=== PATIENT | male | born 1955 | race Hispanic/Latino ===

== ENCOUNTER 2020-01-11 14:53 | Inpatient (IN) | payer SELFPAY ==
[~2020-01-11] VITALS: Ht 167.6 cm; Wt 106.0 kg
[2020-01-11 15:01] LABS: BASOPHILS % (AUTO) 0.2 % (0.0-5.0); EOSINOPHILS % (AUTO) 1.5 % (0.0-8.0); HEMATOCRIT 49.6 % (42-54); LYMPHOCYTES % (AUTO) 48.9 % (21.0-51.0); MEAN CORPUSCULAR HEMOGLOBIN 32.8 pg (27.0-33.0); MEAN CORPUSCULAR HGB CONC 34.1 g/dL (32.0-36.0); MEAN CORPUSCULAR VOLUME 96.3 fL (79-99); MONOCYTES % (AUTO) 8.1 % (3.0-13.0); NEUTROPHILS % (AUTO) 41.1 % (40.0-77.0); PLATELET COUNT (AUTO) 179 K/uL (130-400); RED BLOOD CELL COUNT(AUTO) 5.15 MIL/uL (4.50-6.20); RED CELL DISTRIBUTION WIDTH 12.8 % (11.0-15.5); WHITE BLOOD COUNT (AUTO) 8.5 K/uL (4.8-10.8)
[2020-01-11 15:10] LABS: CREATININE 1.4 mg/dL (0.5-1.5)
[2020-01-11 15:12] LABS: INR 0.93 (0.85-1.15); PARTIAL THROMBOPLASTIN TIME 27.3 SEC (26.3-35.5); PROTHROMBIN TIME 10.1 SEC (9.6-11.6)
[2020-01-11 15:14] LABS: ALBUMIN 4.2 g/dL (3.5-5.0); BILIRUBIN,TOTAL 0.4 mg/dL (0.2-1.0)
[2020-01-11] MEDS ORDERED: ASPIRIN 325 MG TABLET ONE (15:14)
[2020-01-11] MEDS ORDERED: NITROGLYCERIN 0.4 MG SL TAB SL ONE (15:27)
[2020-01-11] MEDS ORDERED: ACETAMINOPHEN 325 MG TAB PO PRN (17:15)
[2020-01-11] MEDS ORDERED: ACETAMINOPHEN-CODEINE 300/30MG TAB PO PRN (17:15)
[2020-01-11] MEDS ORDERED: ENOXAPARIN SODIUM 30 MG/0.3 ML SQ ONE (17:47)
[2020-01-11] MEDS: FAMOTIDINE 20MG TAB 20 MG TAB PO SCH (21:00)
[2020-01-11] MEDS: METOPROLOL TARTRATE 25 MG TAB PO SCH (21:00)
[2020-01-11] MEDS: ATORVASTATIN CALCIUM 20 MG TABLET PO SCH (21:00)
[2020-01-11] MEDS ORDERED: ATORVASTATIN CALCIUM 20 MG TABLET ONE (21:06)
[2020-01-11] MEDS ORDERED: FAMOTIDINE 20MG TAB 20 MG TAB ONE (21:06)
[2020-01-11] MEDS ORDERED: METOPROLOL TARTRATE 25 MG TAB ONE (21:06)
[2020-01-11 23:23] VITALS: BP 144/83
--- NOTE | 2020-01-11 23:30 | NUR ---
ADMISSION NOTE ADMIT TO ROOM 316 VIA STRETCHER FROM ER. PATIENT AWAKE ALERT OX3, NO SOB, NO C/O PAIN, TEACH PATIENT PLAN OF CARE AND EXPECTED OUTCOME, PATIENT VERBALIZES UNDERSTANDING VIA TEACH BACK
[2020-01-11] MEDS ORDERED: LISI10TA7 PO (23:39)
[2020-01-12] VITALS (8 sets, daily range): BP systolic 123–156; BP diastolic 61–92
[2020-01-12 05:41] LABS: BASOPHILS % (AUTO) 0.2 % (0.0-5.0); EOSINOPHILS % (AUTO) 2.1 % (0.0-8.0); HEMATOCRIT 43.6 % (42-54); LYMPHOCYTES % (AUTO) 44.3 % (21.0-51.0); MEAN CORPUSCULAR HEMOGLOBIN 33.4 pg (27.0-33.0); MEAN CORPUSCULAR HGB CONC 34.2 g/dL (32.0-36.0); MEAN CORPUSCULAR VOLUME 97.8 fL (79-99); NEUTROPHILS % (AUTO) 41.9 % (40.0-77.0); PLATELET COUNT (AUTO) 164 K/uL (130-400); RED BLOOD CELL COUNT(AUTO) 4.46 MIL/uL (4.50-6.20); RED CELL DISTRIBUTION WIDTH 12.7 % (11.0-15.5); WHITE BLOOD COUNT (AUTO) 5.7 K/uL (4.8-10.8)
[2020-01-12 06:05] LABS: HEMOGLOBIN A1C 6.3 % (4.0-6.0)
[2020-01-12 06:21] LABS: ALBUMIN 3.3 g/dL (3.5-5.0); BILIRUBIN,TOTAL 0.4 mg/dL (0.2-1.0); CREATININE 1.2 mg/dL (0.5-1.5); POTASSIUM 4.5 mmol/L (3.5-5.1); TOTAL PROTEIN, SERUM 6.4 g/dL (6.0-8.3); TROPONIN I 0.27 ng/mL (0.00-0.06)
[2020-01-12] MEDS ORDERED: PHARMACY COMMUNICATION MISC SCH (08:15)
[2020-01-12] MEDS: ASPIRIN 81MG TAB.CHEW PO SCH (08:28)
[2020-01-12] MEDS: FAMOTIDINE 20MG TAB 20 MG TAB PO SCH ×2 (08:29→21:18)
[2020-01-12] MEDS: METOPROLOL TARTRATE 25 MG TAB PO SCH (08:31)
[2020-01-12] MEDS ORDERED: ENOXAPARIN SODIUM 30 MG/0.3 ML SQ SCH (09:00)
--- NOTE | 2020-01-12 10:19 | NUR ---
spoke with dayday from [facility] on consult . patient is calm denies any chest pain or discomfort . will cont to monitor
--- NOTE | 2020-01-12 10:56 | NUR ---
RD NOTE Pt admitted due to chest pain R/O ACS. Pt is currently NPO. Pt has a hx of HTN, upon admission pt's BG were 116 with an A1C of 6.3. RD consulted for Obesity, High blood sugar on admission. RD recommendation: When medically feasible, advance pt to a heart healthy diet with a 75 GM modifier. Monitor PO intake and labs. RD will monitor for pt's status and will conduct diet education as appropriate for pt's diagnosis. Contact RD for further nutritional concerns. LABS: BG 116, A1C 6.3, AVG BG 134, TROPONIN I 0.27, ALB 3.3, CHOL 219, LDL 167, HDL 28 LAST BM: 01/11/20 Addendum: 01/12/20 at [address] Amended: Links added.
[2020-01-12] MEDS ORDERED: REGADENOSON 0.4 MG/5 ML PF SYG IVP SCH (11:15)
[2020-01-12] MEDS ORDERED: TICAGRELOR 90 MG TABLET PO SCH ×2 (11:15→21:00)
--- NOTE | 2020-01-12 11:23 | NUR ---
NOTIFIED [facility] FROM STRESS PER MD DR STEPHENS CANCEL STRESS TEST
[2020-01-12 12:00] LABS: INR 0.94 (0.85-1.15); PROTHROMBIN TIME 10.2 SEC (9.6-11.6)
[2020-01-12] MEDS ORDERED: SODIUM CHLORIDE 0.9% 500ML 500 ML IV SCH (12:45)
[2020-01-12] MEDS ORDERED: HEPARIN SODIUM 5000UNIT/ML 1ML VIAL ONE (13:27)
[2020-01-12] MEDS: HEPARIN 25000 UNITS/250 ML D5W 250 ML IV PRN (13:49)
--- NOTE | 2020-01-12 13:49 | NUR ---
verified heparin drip calculations with january ruby .instruction provided to patient on heparin ,side effects and signs to watch out for .patient verbilized understanding
[2020-01-12] MEDS ORDERED: LIDOCAINE HCL 1% 20 ML VIAL ONE (15:50)
[2020-01-12] MEDS ORDERED: NICARDIPINE HCL 25 MG/10 ML ML IV ONE (15:51)
[2020-01-12] MEDS ORDERED: IOHEXOL 350 MG/ML 100ML INFUS..BTL IV ONE (15:51)
[2020-01-12] MEDS ORDERED: MIDAZOLAM HCL 1 MG/ML 2ML VIAL ONE (15:51)
[2020-01-12] MEDS ORDERED: FENTANYL CITRATE PF 50 MCG/1 ML 2ML VIAL ONE (15:51)
[2020-01-12] MEDS ORDERED: NITROGLYCERIN 2 MG/VIAL VIAL IV ONE (15:51)
[2020-01-12] MEDS ORDERED: HEPARIN SODIUM 1000UNIT/ML 10ML VIAL ONE (15:51)
[2020-01-12] MEDS: ATORVASTATIN CALCIUM 20 MG TABLET PO SCH (21:18)
[2020-01-13 04:06] VITALS: BP 150/76
[2020-01-13 05:56] LABS: BASOPHILS % (AUTO) 0.1 % (0.0-5.0); EOSINOPHILS % (AUTO) 1.7 % (0.0-8.0); HEMATOCRIT 44.9 % (42-54); LYMPHOCYTES % (AUTO) 38.1 % (21.0-51.0); MEAN CORPUSCULAR HEMOGLOBIN 32.5 pg (27.0-33.0); MEAN CORPUSCULAR HGB CONC 33.9 g/dL (32.0-36.0); MEAN CORPUSCULAR VOLUME 96.1 fL (79-99); MONOCYTES % (AUTO) 8.8 % (3.0-13.0); NEUTROPHILS % (AUTO) 50.9 % (40.0-77.0); PLATELET COUNT (AUTO) 167 K/uL (130-400); RED BLOOD CELL COUNT(AUTO) 4.67 MIL/uL (4.50-6.20); RED CELL DISTRIBUTION WIDTH 12.5 % (11.0-15.5); WHITE BLOOD COUNT (AUTO) 7.5 K/uL (4.8-10.8)
[2020-01-13 06:17] LABS: INR 0.99 (0.85-1.15); PROTHROMBIN TIME 10.7 SEC (9.6-11.6)
[2020-01-13 06:20] LABS: CREATININE 1.3 mg/dL (0.5-1.5); POTASSIUM 4.1 mmol/L (3.5-5.1)
[2020-01-13 06:23] LABS: PARTIAL THROMBOPLASTIN TIME 117.5 SEC (26.3-35.5)
[2020-01-13] MEDS: HEPARIN 25000 UNITS/250 ML D5W 250 ML IV PRN ×2 (07:48→21:47)
[2020-01-13 08:00] VITALS: BP 135/85
[2020-01-13] MEDS: METOPROLOL TARTRATE 25 MG TAB PO SCH ×3 (09:00→21:34)
[2020-01-13] MEDS: ASPIRIN 81MG TAB.CHEW PO SCH (09:00)
[2020-01-13] MEDS: FAMOTIDINE 20MG TAB 20 MG TAB PO SCH ×2 (09:16→21:33)
--- NOTE | 2020-01-13 09:40 | NUR ---
Spoke with Jayne Irizarry RN of [facility]; rec'd clarification of CV plans for pt. She stated that pt will need CABG, but "It is most likely not happening this weekend." Pt is currently on heparin gtt and baby asa po, per Jayne, may continue on both for now. Notified ZACH Almodovar for [employer], of above.
[2020-01-13 11:00] VITALS: BP 146/78
[2020-01-13 16:00] VITALS: BP 167/92
[2020-01-13 18:00] VITALS: BP 146/98
[2020-01-13 20:48] VITALS: BP 159/84
[2020-01-13] MEDS: ATORVASTATIN CALCIUM 20 MG TABLET PO SCH (21:33)
[2020-01-14] VITALS (7 sets, daily range): BP systolic 135–148; BP diastolic 69–84
[2020-01-14 06:12] LABS: HEMATOCRIT 45.8 % (42-54); MEAN CORPUSCULAR HEMOGLOBIN 32.8 pg (27.0-33.0); MEAN CORPUSCULAR HGB CONC 34.1 g/dL (32.0-36.0); MEAN CORPUSCULAR VOLUME 96.2 fL (79-99); PLATELET COUNT (AUTO) 184 K/uL (130-400); RED BLOOD CELL COUNT(AUTO) 4.76 MIL/uL (4.50-6.20); RED CELL DISTRIBUTION WIDTH 12.3 % (11.0-15.5); WHITE BLOOD COUNT (AUTO) 6.7 K/uL (4.8-10.8)
[2020-01-14 06:43] LABS: INR 0.98 (0.85-1.15); PROTHROMBIN TIME 10.6 SEC (9.6-11.6)
[2020-01-14 07:14] LABS: PARTIAL THROMBOPLASTIN TIME 91.3 SEC (26.3-35.5)
[2020-01-14 07:21] LABS: ALBUMIN 3.3 g/dL (3.5-5.0); BILIRUBIN,TOTAL 0.4 mg/dL (0.2-1.0); CREATININE 1.3 mg/dL (0.5-1.5); POTASSIUM 3.9 mmol/L (3.5-5.1); THYROID STIMULATING HORMONE 4.14 uIU/mL (0.36-3.74); TOTAL PROTEIN, SERUM 6.6 g/dL (6.0-8.3)
--- NOTE | 2020-01-14 07:43 | NUR ---
PATIENT UPDATE PT SLEPT FAIRLY OVERNIGHT, NO COMPLAINTS OF CHEST PAIN, NO SHORTNESS OF BREATH. RUNNING SINUS DEDRA IN THE LOW 40'S UP TO NSR IN THE LOW 60'S. NORMOTENSIVE. CONTINUES WITH THE HEPARIN DRIP PER PROTOCOL. PT STATED THAT HE'S GOING FOR CABG X 2 WEDNESDAY AM, STILL PENDING ODER FROM DR. POLLOCK.
[2020-01-14 08:13] LABS: BAND NEUTROPHILS % (MANUAL) 1 % (0-2); EOSINOPHILS % (MANUAL) 2 % (1-6); LYMPHOCYTES % (MANUAL) 36 % (22-44); MAN.DIFF COMMENT-IMPRESSION MANUAL DIFFERENTIAL; MONOCYTES % (MANUAL) 11 % (2-9); PLATELET MORPHOLOGY COMMENT ADEQUATE; REACTIVE LYMPHOCYTES 4 % (0-0); SEGMENTED NEUTROPHILS % 46 % (40-70)
[2020-01-14] MEDS: METOPROLOL TARTRATE 25 MG TAB PO SCH ×2 (09:00→21:41)
[2020-01-14] MEDS ORDERED: LOSARTAN 50 MG TABLET PO SCH (09:45)
[2020-01-14] MEDS: FAMOTIDINE 20MG TAB 20 MG TAB PO SCH ×2 (10:05→21:40)
[2020-01-14] MEDS: ASPIRIN 81MG TAB.CHEW PO SCH (10:07)
[2020-01-14] MEDS: HEPARIN 25000 UNITS/250 ML D5W 250 ML IV PRN ×2 (14:38→23:22)
--- NOTE | 2020-01-14 15:00 | NUR ---
DR ALVARES MADE ROUNDS WITH PATENT.INFORMED HIM OF PATIENT ON HEPRIN AND WHEN CAN WE STOP BEFORE SURGERY . PER MD HE IS STILL DECIDING ON IF DOING SURGERY FOR WEDNESDAY OR WEDNESDAY BUT WILL TALK WITH CARLA LAGUNA AND WILL INFORM US ON WHEN TO STOP HEPRIN ONCE HE KNOWS DATE AND TIME OF SURGERY . PENDING CALL FOLLOW UP FROM REGARDING HEPRIN DRMELODY
--- NOTE | 2020-01-14 19:08 | NUR ---
khalida note met with patient and states resides at home with roxanne, states she works, pt independent with ambulation and adls and self care. no dme. no home services. provided pt with community resource packet including good rx assist card, [facility] plans for home after dc with roxanne, she works, but can assist as needed. pt is self employed, and has spoken to [employer] for possible medicaid assist. Addendum: 01/14/20 at 7 by JACOB DIAL CM Amended: Links added.
[2020-01-14] MEDS: ATORVASTATIN CALCIUM 20 MG TABLET PO SCH (21:40)
[2020-01-15] VITALS (18 sets, daily range): BP systolic 90–160; BP diastolic 54–99
[2020-01-15 05:10] LABS: BASOPHILS % (AUTO) 0.3 % (0.0-5.0); EOSINOPHILS % (AUTO) 1.6 % (0.0-8.0); HEMATOCRIT 44.3 % (42-54); LYMPHOCYTES % (AUTO) 44.8 % (21.0-51.0); MEAN CORPUSCULAR HEMOGLOBIN 32.7 pg (27.0-33.0); MEAN CORPUSCULAR HGB CONC 33.9 g/dL (32.0-36.0); MEAN CORPUSCULAR VOLUME 96.5 fL (79-99); MONOCYTES % (AUTO) 9.4 % (3.0-13.0); NEUTROPHILS % (AUTO) 43.2 % (40.0-77.0); PLATELET COUNT (AUTO) 160 K/uL (130-400); RED BLOOD CELL COUNT(AUTO) 4.59 MIL/uL (4.50-6.20); RED CELL DISTRIBUTION WIDTH 12.5 % (11.0-15.5); WHITE BLOOD COUNT (AUTO) 6.8 K/uL (4.8-10.8)
[2020-01-15 05:30] LABS: CREATININE 1.4 mg/dL (0.5-1.5); POTASSIUM 4.1 mmol/L (3.5-5.1)
[2020-01-15] MEDS ORDERED: AMINOCAPROIC ACID 15,000 MG in SODIUM CHLORIDE 0.9% 500ML 420 ML IV PRN (06:45)
[2020-01-15] MEDS ORDERED: NOREPINEPHRINE BITARTRATE 8 MG in DEXTROSE 5%-WATER 250 ML IV PRN (06:45)
[2020-01-15] MEDS ORDERED: EPINEPHRINE 10 MG in SODIUM CHLORIDE 0.9% 240 ML IV PRN (06:45)
[2020-01-15] MEDS ORDERED: CEFAZOLIN SODIUM 1 GM VIAL IVP PRN (07:00)
--- NOTE | 2020-01-15 07:30 | NUR ---
ASSESSMENT PT IS AAOX4 IN BED, WITH HEPARIN RUNNING @ 1500U/HR, CO SIGHED BY CARSON. PT HAS NO SOB, OR CP AND VS ARE STABLE. PT WILL BE GOING TO OR THIS AM.
[2020-01-15] MEDS ORDERED: CEFAZOLIN SODIUM 1 GM VIAL ONE (07:36)
[2020-01-15] MEDS ORDERED: PAPAVERINE HCL 30 MG/ML 2ML VIAL ONE (07:37)
--- NOTE | 2020-01-15 08:10 | NUR ---
HEPARIN 1500UN/HR HEPARIN D/C , COSIGN BY CARSON SHETH PT GOING TO SURGERY
--- NOTE | 2020-01-15 08:10 | NUR ---
ROUNDING PT LEFT TO OR FOR PROCEDURE, AND WILL GOING TO ROOM 225
[2020-01-15] MEDS ORDERED: NITROGLYCERIN 50 MG/D5% WATER 1 BOT ONE (08:15)
[2020-01-15] MEDS ORDERED: SODIUM BICARB 50MEQ 50ML VIAL 150 ML ONE (08:30)
[2020-01-15] MEDS ORDERED: LIDOCAINE PF 2% 5ML ABBOJECT ONE ×2 (08:30→08:32)
[2020-01-15] MEDS ORDERED: HEPARIN SODIUM 1000UNIT/ML 10ML VIAL ONE (08:30)
[2020-01-15] MEDS ORDERED: EPINEPHRINE 1 MG/ML AMPULE ONE (08:30)
[2020-01-15] MEDS ORDERED: ESMOLOL HCL 10 MG/ML 10 ML VIAL ONE (08:30)
[2020-01-15] MEDS ORDERED: PROTAMINE SULFATE 10 MG/ML 25ML VIAL IV ONE ×2 (08:30→11:39)
[2020-01-15] MEDS ORDERED: NOREPINEPHRINE BITARTRATE 1 MG/1 ML ML IV ONE (08:31)
[2020-01-15] MEDS ORDERED: ETOMIDATE 2 MG/ML 10 ML VIAL ONE (08:31)
[2020-01-15] MEDS ORDERED: AMINOCAPROIC ACID 250 MG/ML 20 ML VIAL ONE (08:31)
[2020-01-15] MEDS ORDERED: MIDAZOLAM HCL 1 MG/ML 2ML VIAL ONE (08:31)
[2020-01-15] MEDS ORDERED: PROPOFOL 10 MG/ML 20ML VIAL IV ONE (08:31)
[2020-01-15] MEDS ORDERED: FENTANYL CITRATE PF 50 MCG/1 ML 20ML VIAL IJ ONE (08:31)
[2020-01-15] MEDS ORDERED: ROCURONIUM 10MG/1ML SYR 10 MG/ML ML ONE (08:31)
[2020-01-15] MEDS ORDERED: SODIUM CHLORIDE 0.9% 1000ML 1,000 ML IV ONE ×2 (08:38→11:25)
[2020-01-15] MEDS ORDERED: LOSARTAN 50 MG TABLET PO SCH (09:00)
[2020-01-15] MEDS ORDERED: DELNIDO FORMULA 1 BAG IV ONE (09:13)
[2020-01-15] MEDS ORDERED: ATROPINE SULFATE 0.1 MG/ML 10 ML SYG IVP ONE (09:15)
[2020-01-15] MEDS ORDERED: GLYCOPYRROLATE 1 MG/5 ML SYRINGE ONE (09:16)
[2020-01-15 09:22] LABS: ABG HCO3 21.8 mmol/L (21.0-28.0); ABG OXYGEN SATURATION 99.2 % (95.0-99.0); ABG PCO2 42 mmHg (35-48)
[2020-01-15 11:15] LABS: ABG BASE EXCESS -2.8 mmol/L (-2.0-3.0); ABG HCO3 20.8 mmol/L (21.0-28.0); ABG OXYGEN SATURATION 98.6 % (95.0-99.0); ABG PCO2 32 mmHg (35-48)
[2020-01-15] MEDS ORDERED: ALBUMIN (HUMAN) 5% 250 ML IV PRN (11:15)
[2020-01-15] MEDS ORDERED: MORPHINE SULFATE 2 MG/ML 1ML SYG IV PRN (11:15)
[2020-01-15] MEDS ORDERED: ACETAMINOPHEN 325 MG TAB PO PRN (11:15)
[2020-01-15] MEDS ORDERED: PROPOFOL 1000 MG/100 ML 100 ML IV PRN (11:15)
[2020-01-15] MEDS ORDERED: SODIUM CHLORIDE 0.9% 500ML 500 ML IV SCH (11:15)
[2020-01-15] MEDS ORDERED: SODIUM CHLORIDE 0.9% 10 ML VIAL IVP PRN (11:15)
[2020-01-15] MEDS ORDERED: GLUCAGON 1MG KIT 1 MG ML IM PRN (11:15)
[2020-01-15] MEDS ORDERED: INSULIN REGULAR, HUMAN 3ML 100 UNIT in SODIUM CHLORIDE 0.9% 99 ML IV SCH ×2 (11:15)
[2020-01-15] MEDS ORDERED: NITROGLYCERIN 50 MG/D5% WATER 250 BOT IV SCH (11:15)
[2020-01-15] MEDS ORDERED: ONDANSETRON HCL 4 MG/2 ML VIAL IV PRN (11:15)
[2020-01-15] MEDS ORDERED: EPINEPHRINE 2 MG in DEXTROSE 5%-WATER 250 ML IV PRN (11:15)
[2020-01-15] MEDS ORDERED: POTASSIUM CHLORIDE 20MEQ/100ML 100 ML IV PRN (11:15)
[2020-01-15] MEDS ORDERED: DEXTROSE 50%-WATER 50 ML DISP.SYRIN IV PRN (11:15)
[2020-01-15] MEDS ORDERED: MORPHINE SULFATE 4 MG/1ML SYG IV PRN (11:15)
[2020-01-15] MEDS ORDERED: ACETAMINOPHEN 650 MG SUPPOSITORY RC PRN (11:15)
[2020-01-15] MEDS ORDERED: NOREPINEPHRINE 4MG/NS 250ML 250 ML IV PRN (11:15)
[2020-01-15] MEDS ORDERED: MAGNESIUM 2GM PREMIX 50ML 50 ML IV PRN (11:15)
[2020-01-15] MEDS ORDERED: POTASSIUM PHOS 15 mMOL+NS250ML 250 ML IV PRN (11:15)
[2020-01-15] MEDS ORDERED: SODIUM CHLORIDE 0.9% 1000ML 1,000 ML IV SCH (11:15)
[2020-01-15] MEDS ORDERED: AMINOCAPROIC ACID 15,000 MG in SODIUM CHLORIDE 0.9% 250 ML IV SCH (11:15)
[2020-01-15 11:37] LABS: ABG BASE EXCESS -6.4 mmol/L (-2.0-3.0); ABG HCO3 17.6 mmol/L (21.0-28.0); ABG OXYGEN SATURATION 98.7 % (95.0-99.0); ABG PCO2 31 mmHg (35-48)
[2020-01-15 11:55] LABS: ABG BASE EXCESS 3.7 mmol/L (-2.0-3.0); ABG HCO3 29.1 mmol/L (21.0-28.0); ABG PCO2 47 mmHg (35-48)
[2020-01-15 13:05] LABS: ABG BASE EXCESS -3.4 mmol/L (-2.0-3.0); ABG HCO3 21.4 mmol/L (21.0-28.0); ABG OXYGEN SATURATION 97.6 % (95.0-99.0); ABG PCO2 38 mmHg (35-48)
[2020-01-15 13:10] LABS: HEMATOCRIT 44.9 % (42-54); MEAN CORPUSCULAR HEMOGLOBIN 33.4 pg (27.0-33.0); MEAN CORPUSCULAR VOLUME 95.5 fL (79-99); RED BLOOD CELL COUNT(AUTO) 4.7 MIL/uL (4.50-6.20); RED CELL DISTRIBUTION WIDTH 12.5 % (11.0-15.5); WHITE BLOOD COUNT (AUTO) 15.1 K/uL (4.8-10.8)
[2020-01-15 13:21] LABS: CREATININE 1.4 mg/dL (0.5-1.5); MAGNESIUM 2.1 mg/dL (1.80-2.40); PHOSPHORUS 5.4 mg/dL (2.5-4.9); POTASSIUM 4.9 mmol/L (3.5-5.1)
[2020-01-15 13:26] LABS: INR 1.06 (0.85-1.15); PROTHROMBIN TIME 11.4 SEC (9.6-11.6)
[2020-01-15] MEDS: SODIUM BICARB 50MEQ 50ML VIAL IV PRN ×3 (13:27→15:55)
[2020-01-15 14:25] LABS: ABG BASE EXCESS -3.6 mmol/L (-2.0-3.0); ABG HCO3 21.1 mmol/L (21.0-28.0); ABG PCO2 37 mmHg (35-48)
--- NOTE | 2020-01-15 15:00 | NUR ---
PT FULLY AWAKE, ABLE TO FOLLOW COMMANDS. NO NEURO DEFICIT NOTED. PT WITH STRONG BILATERAL HAND FIRER PORTABLE BOILER AND ABLE TO SUSTAIN HEADLIFT. PT TOLERATING WEANING FROM VENT. ABG AND WEANING PARAMETERS WITHIN LIMITS. NIP -37 AND VITAL CAPACITY OF 664 ML. PT EXTUBATED PER CV PROTOCOL. PLACED ON 40 % AFM. INSTRUCTED ON DEEP BREATHING AND USE OF HEART PILLOW. NODS UNDERSTANDING.
[2020-01-15] MEDS ORDERED: ALBUMIN (HUMAN) 5% 250 ML IV ONE (15:13)
[2020-01-15] MEDS: TRAMADOL HCL 50 MG TABLET PO PRN (15:45)
[2020-01-15 15:52] LABS: ABG HCO3 24.6 mmol/L (21.0-28.0); ABG OXYGEN SATURATION 96.6 % (95.0-99.0); ABG PCO2 44 mmHg (35-48)
[2020-01-15] MEDS: CEFAZOLIN SODIUM 1 GM VIAL IV SCH ×2 (15:56→23:58)
[2020-01-15] MEDS: CALCIUM GLUCONATE 1 GM in SODIUM CHLORIDE 0.9% 50 ML IV PRN (16:01)
[2020-01-15] MEDS ORDERED: HYDROMORPHONE HCL 2 MG/ML VIAL ONE (16:16)
[2020-01-15] MEDS ORDERED: HYDROMORPHONE 1 MG/1 ML AMP IVP ONE (16:45)
[2020-01-15 17:40] LABS: ABG BASE EXCESS 0.4 mmol/L (-2.0-3.0); ABG HCO3 28.4 mmol/L (21.0-28.0); ABG OXYGEN SATURATION 93.5 % (95.0-99.0); ABG PCO2 60 mmHg (35-48)
--- NOTE | 2020-01-15 19:00 | NUR ---
ASSESSMENT PT AWAKE AND ORIENTED BUT LETHARGIC CURRENTLY BUT AROUSES EASILY AND DOES RESPOND APPROPRIATELY. CURRENTLY DENIES PAIN. BI PAP IN PLACE 18 AT 50%. IV FLUIDS NS/EPI/LEVO/INSULIN INFUSING WITHOUT DIFFICULTY. CHEST TUBES TO 20 CM OF SUCTION WITH SMALL AIR LEAKS NOTED. LEE CATH TO BEDSIDE DRAINAGE. ASSESSMENT COMPLETE, SEE FLOW SHEET.
--- NOTE | 2020-01-15 20:08 | NUR ---
DR SARAH SMITH INTO SEE PT, SEE ORDERS
[2020-01-15] MEDS: FAMOTIDINE/PF 20 MG/2 ML VIAL IV SCH (20:54)
[2020-01-16] VITALS (34 sets, daily range): BP systolic 90–147; BP diastolic 49–85
[2020-01-16 01:35] LABS: CREATININE 2.3 mg/dL (0.5-1.5); POTASSIUM 3.8 mmol/L (3.5-5.1)
[2020-01-16] MEDS: CALCIUM GLUCONATE 1 GM in SODIUM CHLORIDE 0.9% 50 ML IV PRN (02:30)
[2020-01-16] MEDS: TRAMADOL HCL 50 MG TABLET PO PRN ×2 (02:41→08:46)
[2020-01-16 03:26] LABS: HEMATOCRIT 42.1 % (42-54); MEAN CORPUSCULAR HEMOGLOBIN 33.1 pg (27.0-33.0); MEAN CORPUSCULAR HGB CONC 33.3 g/dL (32.0-36.0); MEAN CORPUSCULAR VOLUME 99.5 fL (79-99); RED BLOOD CELL COUNT(AUTO) 4.23 MIL/uL (4.50-6.20); RED CELL DISTRIBUTION WIDTH 13.2 % (11.0-15.5)
[2020-01-16 03:37] LABS: CREATININE 2.2 mg/dL (0.5-1.5); PHOSPHORUS 5.9 mg/dL (2.5-4.9); POTASSIUM 4.2 mmol/L (3.5-5.1)
[2020-01-16 03:52] LABS: INR 1.06 (0.85-1.15); PARTIAL THROMBOPLASTIN TIME 26.7 SEC (26.3-35.5); PROTHROMBIN TIME 11.4 SEC (9.6-11.6)
[2020-01-16 04:26] LABS: ABG BASE EXCESS -2.9 mmol/L (-2.0-3.0); ABG HCO3 22.9 mmol/L (21.0-28.0); ABG OXYGEN SATURATION 96.2 % (95.0-99.0); ABG PCO2 44 mmHg (35-48)
[2020-01-16] MEDS ORDERED: NOREPINEPHRINE BITARTRATE 1 MG/1 ML ML IV ONE (04:52)
[2020-01-16] MEDS: SODIUM BICARB 50MEQ 50ML VIAL IV PRN ×2 (06:23→07:30)
[2020-01-16 07:20] LABS: ABG BASE EXCESS -0.9 mmol/L (-2.0-3.0); ABG HCO3 23.7 mmol/L (21.0-28.0); ABG PCO2 39 mmHg (35-48)
[2020-01-16] MEDS: ASPIRIN 325MG EC TAB 325 MG TABLET.DR PO SCH (07:37)
[2020-01-16] MEDS: CEFAZOLIN SODIUM 1 GM VIAL IV SCH (07:37)
[2020-01-16] MEDS: FAMOTIDINE/PF 20 MG/2 ML VIAL IV SCH (07:37)
[2020-01-16] MEDS ORDERED: OXYCODONE/ACETAMIN 5/325MG TAB PO PRN ×2 (10:15)
[2020-01-16] MEDS ORDERED: FUROSEMIDE 10 MG/ML 2ML VIAL ONE (18:35)
[2020-01-16] MEDS: ATORVASTATIN CALCIUM 20 MG TABLET PO SCH (21:31)
[2020-01-17] VITALS (46 sets, daily range): BP systolic 91–131; BP diastolic 44–78
[2020-01-17] MEDS: TRAMADOL HCL 50 MG TABLET PO PRN ×4 (00:54→20:50)
[2020-01-17] MEDS: FUROSEMIDE 10 MG/ML 2ML VIAL IV SCH ×3 (00:59→16:57)
[2020-01-17 03:49] LABS: HEMATOCRIT 35.9 % (42-54); MEAN CORPUSCULAR HEMOGLOBIN 32.7 pg (27.0-33.0); MEAN CORPUSCULAR HGB CONC 32.6 g/dL (32.0-36.0); MEAN CORPUSCULAR VOLUME 100.3 fL (79-99); RED BLOOD CELL COUNT(AUTO) 3.58 MIL/uL (4.50-6.20); RED CELL DISTRIBUTION WIDTH 13.2 % (11.0-15.5); WHITE BLOOD COUNT (AUTO) 11.2 K/uL (4.8-10.8)
[2020-01-17 04:09] LABS: CREATININE 1.8 mg/dL (0.5-1.5); POTASSIUM 4.2 mmol/L (3.5-5.1)
[2020-01-17 07:41] LABS: ABG BASE EXCESS -9.2 mmol/L (-2.0-3.0); ABG HCO3 15.1 mmol/L (21.0-28.0); ABG OXYGEN SATURATION 96.8 % (95.0-99.0); ABG PCO2 28 mmHg (35-48)
[2020-01-17 07:41] LABS: ABG BASE EXCESS -0.8 mmol/L (-2.0-3.0); ABG HCO3 25.9 mmol/L (21.0-28.0); ABG OXYGEN SATURATION 96.5 % (95.0-99.0); ABG PCO2 51 mmHg (35-48)
--- NOTE | 2020-01-17 08:00 | NUR ---
A LINE A-LINE WAS NOT WORKING SINCE THE BEGINNING OF SHIFT. NOT CORRELATING OR GETTING A READING. DR. DUNHAM WAS CONTACTED AND A LINE WAS D/C ACCORDING TO ORDERS.
[2020-01-17] MEDS: ASPIRIN 325MG EC TAB 325 MG TABLET.DR PO SCH (08:20)
[2020-01-17] MEDS: FAMOTIDINE/PF 20 MG/2 ML VIAL IV SCH (08:20)
[2020-01-17] MEDS: INSULIN HUMULIN R 100 UNIT/ML 3ML SQ SCH ×3 (11:30→20:49)
[2020-01-17] MEDS ORDERED: AMINOCAPROIC ACID 250 MG/ML 20 ML VIAL IV ONE (12:29)
[2020-01-17] MEDS ORDERED: CALCIUM CHLORIDE 100 MG/ML 10 ML SYG IVP ONE (12:29)
[2020-01-17] MEDS ORDERED: PHENYLEPHRINE HCL 10 MG/ML 1ML VIAL IV ONE (12:29)
[2020-01-17] MEDS ORDERED: MAGNESIUM SULFATE 1 GM/2 ML VIAL IM ONE (12:29)
[2020-01-17] MEDS ORDERED: HEPARIN SODIUM 1000UNIT/ML 10ML VIAL IV ONE (12:29)
[2020-01-17] MEDS ORDERED: ALBUMIN (HUMAN) 25% 50 ML IV ONE (12:29)
[2020-01-17] MEDS ORDERED: SODIUM BICARB 8.4% 50ML SYRINGE IVP ONE (12:29)
[2020-01-17] MEDS ORDERED: MANNITOL 25% 50ML VIAL IV ONE (12:29)
--- NOTE | 2020-01-17 13:45 | NUR ---
DR. MONROY ROUNDS DR. MONROY ROUNDED ON PT. INFORMED OF LOW URINE OUTPUT. ORDERS TO INCREASE LASIX 20MG TID.
[2020-01-17] MEDS ORDERED: IPRATROPIUM 0.5 MG/2.5 ML INH IH PRN (14:00)
[2020-01-17 15:30] LABS: CREATININE 1.8 mg/dL (0.5-1.5); POTASSIUM 4.2 mmol/L (3.5-5.1)
[2020-01-17] MEDS: ATORVASTATIN CALCIUM 20 MG TABLET PO SCH (20:49)
[2020-01-18 00:45] VITALS: BP 89/48
--- NOTE | 2020-01-18 00:45 | NUR ---
transfer to pccu report called to danna sin all questions answered vss, patient aaox4 reinforced teaching for is and deep breathing exercises, splinting with cough patient voided prior to transfer 400ml patient asked for son to be notified in the am of transfer mediastinal ct output 30ml level at [address] output 5ml level at 530
--- NOTE | 2020-01-18 01:00 | NUR ---
PT ARRIVED IN ROOM 420. PT AAOx4. CHEST TUBES IN PLACE AND SECURED. DENIES CHEST PAIN. NC AT 4L. BED TO LOWEST LEVEL. CALL LIGHT WITHIN REACH.
[2020-01-18] MEDS: FUROSEMIDE 10 MG/ML 2ML VIAL IV SCH ×4 (02:53→20:48)
[2020-01-18 04:15] VITALS: BP 117/60
[2020-01-18 06:02] LABS: HEMATOCRIT 37.3 % (42-54); RED BLOOD CELL COUNT(AUTO) 3.62 MIL/uL (4.50-6.20); RED CELL DISTRIBUTION WIDTH 13.2 % (11.0-15.5); WHITE BLOOD COUNT (AUTO) 8.7 K/uL (4.8-10.8)
[2020-01-18 06:10] LABS: CREATININE 1.5 mg/dL (0.5-1.5); POTASSIUM 4.2 mmol/L (3.5-5.1)
[2020-01-18] MEDS: INSULIN HUMULIN R 100 UNIT/ML 3ML SQ SCH ×4 (07:30→20:46)
[2020-01-18 07:53] VITALS: BP 147/62
[2020-01-18] MEDS: FAMOTIDINE/PF 20 MG/2 ML VIAL IV SCH (07:58)
[2020-01-18] MEDS: ASPIRIN 325MG EC TAB 325 MG TABLET.DR PO SCH (07:59)
--- NOTE | 2020-01-18 08:00 | NUR ---
ASSESSMENT PT IS AAOX3 DENIES CP DENIES SOB, BREATHING PATTERN IS EVEN AND UNLABORED. DENIES NV, NO COMPLAINTS POSITIONED SITTING UP IN BED. ENCOURAGED COUGH AND DEEP BREATHING WITH HEART PILLOW SPLINTING, ENCOURAGED USE OF IS 10XS Q1HR WHILE AWAKE. AM MEDS GIVEN, CALL LIGHT WITHIN REACH.
[2020-01-18 12:37] VITALS: BP 115/61
--- NOTE | 2020-01-18 15:39 | NUR ---
RD Note RD visited pt for DM Education and follow up on 01/18/20, pt was asleep. Family member at bedside, requested RD to follow up tomorrow 01/19/20. RD will follow up 01/19/20. Contact Dietary for any nutritional concerns.
[2020-01-18 16:18] VITALS: BP 140/75
[2020-01-18 20:12] VITALS: BP 120/75
[2020-01-18] MEDS: ATORVASTATIN CALCIUM 20 MG TABLET PO SCH (20:48)
[2020-01-19 00:24] VITALS: BP 106/57
[2020-01-19 04:24] VITALS: BP 126/74
[2020-01-19] MEDS: INSULIN HUMULIN R 100 UNIT/ML 3ML SQ SCH ×4 (05:07→21:00)
[2020-01-19 06:26] LABS: BASOPHILS % (AUTO) 0.1 % (0.0-5.0); EOSINOPHILS % (AUTO) 1.5 % (0.0-8.0); HEMATOCRIT 36.7 % (42-54); LYMPHOCYTES % (AUTO) 21.4 % (21.0-51.0); MEAN CORPUSCULAR HEMOGLOBIN 32.8 pg (27.0-33.0); MEAN CORPUSCULAR VOLUME 99.5 fL (79-99); MONOCYTES % (AUTO) 9.2 % (3.0-13.0); PLATELET COUNT (AUTO) 127 K/uL (130-400); RED BLOOD CELL COUNT(AUTO) 3.69 MIL/uL (4.50-6.20); RED CELL DISTRIBUTION WIDTH 13.2 % (11.0-15.5); WHITE BLOOD COUNT (AUTO) 7.6 K/uL (4.8-10.8)
[2020-01-19 06:51] LABS: ALBUMIN 2.7 g/dL (3.5-5.0); BILIRUBIN,TOTAL 0.8 mg/dL (0.2-1.0); CREATININE 1.3 mg/dL (0.5-1.5); POTASSIUM 3.5 mmol/L (3.5-5.1); TOTAL PROTEIN, SERUM 6.4 g/dL (6.0-8.3)
[2020-01-19 07:04] LABS: B-TYPE NATRIURETIC PEPTIDE 201 pg/mL (0-100)
[2020-01-19 08:00] VITALS: BP 123/69
[2020-01-19] MEDS: FUROSEMIDE 10 MG/ML 2ML VIAL IV SCH (09:00)
[2020-01-19] MEDS: TRAMADOL HCL 50 MG TABLET PO PRN ×2 (10:49→12:56)
[2020-01-19 11:58] VITALS: BP 133/79
[2020-01-19] MEDS ORDERED: FAMOTIDINE 20MG TAB 20 MG TAB ONE (14:17)
[2020-01-19] MEDS: ASPIRIN 325MG EC TAB 325 MG TABLET.DR PO SCH (14:19)
[2020-01-19] MEDS ORDERED: PHARMACY COMMUNICATION MISC SCH (14:30)
--- NOTE | 2020-01-19 14:51 | NUR ---
RD FOLLOW UP Pt is currently on a heart healthy diet, consuming 100% as per EMR. At time of visit pt was in pain. at bed side. RD Recommendation: Continue current diet order. Monitor PO intake and BG levels LABS: BUN 31, GFR 59, BG 117, TOT CA 8.4, AST 92, BNP 2012, TOT PRO 6.4, ALB 2.7 LBM 01/18/20 RD will continue to follow. Addendum: 01/19/20 at [address] Amended: Links added.
--- NOTE | 2020-01-19 14:59 | NUR ---
RD DM EDUC RD consulted for new DM Education. Met with pt and for DM education. Pt is unaware of new DM diagnosis. Pt stated he was previously pre DM. Denied need for education however, would like to keep educational material provided. RD provided handouts. Pt wanted to keep handouts for future reference . Pt and were encouraged to contact RD for further nutritional questions. RD to follow. Thank you Addendum: 01/19/20 at [address] Amended: Links added.
[2020-01-19 16:00] VITALS: BP 115/67
[2020-01-19] MEDS ORDERED: FUROSEMIDE 10 MG/ML 2ML VIAL IV SCH (17:00)
[2020-01-19] MEDS: FUROSEMIDE 20 MG TABLET PO SCH (18:15)
--- NOTE | 2020-01-19 19:10 | NUR ---
PM Assessment Received pt with at the bedside, pt sited on a cardiac chair. Routine assessment done, plan of care discuss, encourage to keep doing his IS, noted initially does only 500, re-instructed how to do it, able to reach 1000. Pt denies discomfort made aware that he will be awaken by 0600 as he need to be out of bed & sited in the cardiac chair upon MD rounds, agreed. Pt claimed able to ambulate fairly well in the hallway.
[2020-01-19 20:00] VITALS: BP 129/66
[2020-01-19] MEDS: ATORVASTATIN CALCIUM 20 MG TABLET PO SCH (21:34)
[2020-01-19] MEDS: METOPROLOL TARTRATE 25 MG TAB PO SCH (21:34)
[2020-01-20] VITALS: BP 131/69
--- NOTE | 2020-01-20 02:30 | NUR ---
Re: Surgical incision site care PT noted awake & ambulated independently to the bathroom, agreed to have his dressing change, done aseptically using Betadine swab, mid chest incision upper portion left open to air, lower section covered with 4x4 gauze as a small amount of serous drainage noted. Chest tube puncture site, silk suture intact, covered with 4x4 gauze secure with paper tape.Left leg elastic bandage re-applied, noted loosened.
[2020-01-20 04:00] VITALS: BP 136/72
[2020-01-20] MEDS: INSULIN HUMULIN R 100 UNIT/ML 3ML SQ SCH ×4 (05:50→20:25)
[2020-01-20] MEDS: FUROSEMIDE 20 MG TABLET PO SCH ×2 (05:52→18:18)
[2020-01-20 06:22] LABS: HEMATOCRIT 38.9 % (42-54); MEAN CORPUSCULAR HEMOGLOBIN 32.7 pg (27.0-33.0); MEAN CORPUSCULAR HGB CONC 33.2 g/dL (32.0-36.0); MEAN CORPUSCULAR VOLUME 98.5 fL (79-99); NUCLEATED RED BLOOD CELLS 0.3 % (0.0-0.19); PLATELET COUNT (AUTO) 122 K/uL (130-400); RED BLOOD CELL COUNT(AUTO) 3.95 MIL/uL (4.50-6.20)
[2020-01-20 06:41] LABS: ALBUMIN 2.6 g/dL (3.5-5.0); BILIRUBIN,TOTAL 0.8 mg/dL (0.2-1.0); CREATININE 1.3 mg/dL (0.5-1.5); POTASSIUM 3.4 mmol/L (3.5-5.1); TOTAL PROTEIN, SERUM 6.5 g/dL (6.0-8.3)
[2020-01-20 06:49] LABS: BAND NEUTROPHILS % (MANUAL) 19 % (0-2); EOSINOPHILS % (MANUAL) 2 % (1-6); LYMPHOCYTES % (MANUAL) 30 % (22-44); MAN.DIFF COMMENT-IMPRESSION MANUAL DIFFERENTIAL; MONOCYTES % (MANUAL) 7 % (2-9); PLATELET MORPHOLOGY COMMENT ADEQUATE; REACTIVE LYMPHOCYTES 1 % (0-0); SEGMENTED NEUTROPHILS % 41 % (40-70)
--- NOTE | 2020-01-20 07:40 | NUR ---
ASSESSMENT ENCOUNTERED PT UP IN CHAIR, A&OX3, CALM COOPERATIVE AND DOES NOT APPEAR TO BE IN ANY DISTRESS NOR ANY NEURO DEFICITS PRESENT. PT DENIES PAIN, SOB, NAUSEA. STERNAL AND CHEST TUBE INCISION SITES DRY AND INTACT. INCENTIVE SPIROMETRY AVERAGING 1000-1250ML PER ATTEMPT. PT IS AMBULATORY, GAIT SLOW BUT STEADY WITH 1-2 PERSON ASSIST. CALL LIGHT WITHIN REACH.
[2020-01-20 08:06] VITALS: BP 111/71
[2020-01-20] MEDS: FAMOTIDINE 20MG TAB 20 MG TAB PO SCH (09:46)
[2020-01-20] MEDS: ASPIRIN 325MG EC TAB 325 MG TABLET.DR PO SCH (09:46)
[2020-01-20] MEDS: METOPROLOL TARTRATE 25 MG TAB PO SCH ×2 (09:47→20:26)
[2020-01-20 12:00] VITALS: BP 108/68
[2020-01-20 16:09] VITALS: BP 113/63
[2020-01-20 20:00] VITALS: BP 111/62
[2020-01-20] MEDS: ATORVASTATIN CALCIUM 20 MG TABLET PO SCH (20:26)
[2020-01-20] MEDS ORDERED: POTASSIUM CHLORIDE 20MEQ/100ML 100 ML IV PRN (20:30)
[2020-01-20] MEDS ORDERED: LIDOCAINE HCL-MPF 1% 2ML VIAL IV PRN (20:30)
[2020-01-20] MEDS ORDERED: POTASSIUM CHLORIDE 10% ELIXIR 20 MEQ/15 ML UDCUP ONE (20:37)
[2020-01-20] MEDS: POTASSIUM CHLORIDE 10% ELIXIR 20 MEQ/15 ML UDCUP PO PRN (23:11)
[2020-01-21 00:10] VITALS: BP 110/65
[2020-01-21 04:28] VITALS: BP 120/72
[2020-01-21] MEDS: INSULIN HUMULIN R 100 UNIT/ML 3ML SQ SCH (05:48)
[2020-01-21 05:51] LABS: BASOPHILS % (AUTO) 0.3 % (0.0-5.0); EOSINOPHILS % (AUTO) 1.1 % (0.0-8.0); HEMATOCRIT 33.5 % (42-54); LYMPHOCYTES % (AUTO) 24.5 % (21.0-51.0); MEAN CORPUSCULAR HEMOGLOBIN 32.9 pg (27.0-33.0); MEAN CORPUSCULAR HGB CONC 33.7 g/dL (32.0-36.0); MEAN CORPUSCULAR VOLUME 97.7 fL (79-99); NEUTROPHILS % (AUTO) 60.1 % (40.0-77.0); PLATELET COUNT (AUTO) 147 K/uL (130-400); RED BLOOD CELL COUNT(AUTO) 3.43 MIL/uL (4.50-6.20); WHITE BLOOD COUNT (AUTO) 6.7 K/uL (4.8-10.8)
[2020-01-21 06:14] LABS: ALBUMIN 2.2 g/dL (3.5-5.0); BILIRUBIN,TOTAL 0.5 mg/dL (0.2-1.0); CREATININE 1.2 mg/dL (0.5-1.5); POTASSIUM 3.3 mmol/L (3.5-5.1); TOTAL PROTEIN, SERUM 5.6 g/dL (6.0-8.3)
[2020-01-21] MEDS: POTASSIUM CHLORIDE 10% ELIXIR 20 MEQ/15 ML UDCUP PO PRN (06:46)
[2020-01-21 08:00] VITALS: BP 114/63
[2020-01-21] MEDS ORDERED: FUROSEMIDE 20 MG TABLET PO SCH (08:00)
[2020-01-21] MEDS: ASPIRIN 325MG EC TAB 325 MG TABLET.DR PO SCH (08:13)
[2020-01-21] MEDS: FAMOTIDINE 20MG TAB 20 MG TAB PO SCH (08:14)
[2020-01-21] MEDS: METOPROLOL TARTRATE 25 MG TAB PO SCH (08:14)
[2020-01-21] MEDS: POTASSIUM CHLORIDE 20 MEQ ERTAB PO PRN ×2 (08:31→12:30)
[2020-01-21 11:00] VITALS: BP 95/58
[2020-01-21 16:00] VITALS: BP 107/60
[2020-01-21] MEDS ORDERED: FAMO20TA8 PO (17:28)
[2020-01-21] MEDS ORDERED: ATOR20TA65 PO (17:28)
[2020-01-21] MEDS ORDERED: METO25 PO (17:28)
[2020-01-21] MEDS ORDERED: FURO20TA6 PO (17:28)
== END 2020-01-21 18:54 | disposition home or self-care (01) | DRG 233 ==
LOC: EDH 14:53 → OBSVTOIN 14:54 → EDHIP 14:54 → 3CH 22:36 → 2CH 01-15 11:17 → 4CH 01-17 23:57
PROVIDERS: ADMIT Hospitalist; ATTEND Hospitalist
PROC: 4A023N7 Measurement of Cardiac Sampling and Pressure, Left Heart, Percutaneous Approach (ICD-10-PCS; 2020-01-12)
PROC: B211YZZ Fluoroscopy of Multiple Coronary Arteries using Other Contrast (ICD-10-PCS; 2020-01-12)
PROC: 06BQ4ZZ Excision of Left Saphenous Vein, Percutaneous Endoscopic Approach (ICD-10-PCS; 2020-01-15)
PROC: 02HV33Z Insertion of Infusion Device into Superior Vena Cava, Percutaneous Approach (ICD-10-PCS; 2020-01-15)
PROC: 02100Z9 Bypass Coronary Artery, One Artery from Left Internal Mammary, Open Approach (ICD-10-PCS; principal; 2020-01-15 08:43)
PROC: 021009W Bypass Coronary Artery, One Artery from Aorta with Autologous Venous Tissue, Open Approach (ICD-10-PCS; 2020-01-15 08:43)
DX: I21.4 Non-ST elevation (NSTEMI) myocardial infarction (principal); I50.43 Acute on chronic combined systolic (congestive) and diastolic (congestive) heart failure; N17.9 Acute kidney failure, unspecified; J98.11 Atelectasis; E66.01 Morbid (severe) obesity due to excess calories; E78.5 Hyperlipidemia, unspecified; I25.110 Atherosclerotic heart disease of native coronary artery with unstable angina pectoris; R09.02 Hypoxemia; E78.00 Pure hypercholesterolemia, unspecified; I11.0 Hypertensive heart disease with heart failure; Z82.3 Family history of stroke; Z83.3 Family history of diabetes mellitus; Z82.49 Family history of ischemic heart disease and other diseases of the circulatory system; Z79.899 Other long term (current) drug therapy; Z68.37 Body mass index [BMI] 37.0-37.9, adult
CPT/HCPCS: 36415; 36600; 71045; 80048; 80053; 80061; 82330; 82435; 82550; 82803; 82947; 82948; 83036; 83605; 83735; 83874; 83880; 84100; 84132; 84295; 84439; 84443; 84484; 85018; 85025; 85027; 85347; 85384; 85610; 85730; 86850; 86900; 86901; 86923; 93005; 93306; 93356; 93458; 93880; 94002; 94010; 94150; 94640; 94660; 97039; 99156; 99157; A7048; C1729; C1757; C1760; C1894; G0378; J0171; J0461; J0610; J0690; J1170; J1644; J1650; J1815; J1940; J2001; J2150; J2250; J2270; J2370; J2440; J2704; J2720; J2785; J3010; J3475; J3480; J3490; J7030; J7040; J7060; J7120; P9045; P9047; Q9967

== ENCOUNTER → 2021-08-11 | Outpatient (CLI) | payer OTHER, MEDICARE ==
[~2021-08-11] MED LIST: ATOR20TA65 PO; FAMO20TA8 PO; FURO20TA6 PO; LISI10TA24 PO; METO25 PO
== END | disposition home or self-care (01) ==
LOC: OIH 10:07
PROVIDERS: ATTEND Internal Medicine Cardiovascular Disease
DX: I11.9 Hypertensive heart disease without heart failure (principal); E78.5 Hyperlipidemia, unspecified; Z95.1 Presence of aortocoronary bypass graft
CPT/HCPCS: 93306

== ENCOUNTER 2022-08-21 21:45 | Emergency (ER) | payer OTHER, MEDICARE | END 2022-08-22 00:20 | disposition left against medical advice (07) | LOC: EDH 21:45 | DX: M54.9 Dorsalgia, unspecified (principal); Z53.21 Procedure and treatment not carried out due to patient leaving prior to being seen by health care provider ==

== ENCOUNTER 2022-08-26 16:57 | Emergency (ER) | payer OTHER, MEDICARE ==
[~2022-08-26] VITALS: Ht 170.2 cm; Wt 103.4 kg
[2022-08-26 17:53] LABS: BASOPHILS % (AUTO) 0.3 % (0.0-5.0); EOSINOPHILS % (AUTO) 0.4 % (0.0-8.0); HEMATOCRIT 50.8 % (42-54); LYMPHOCYTES % (AUTO) 28.7 % (21.0-51.0); MEAN CORPUSCULAR HEMOGLOBIN 32.5 pg (27.0-33.0); MEAN CORPUSCULAR HGB CONC 32.9 g/dL (32.0-36.0); MEAN CORPUSCULAR VOLUME 98.8 fL (79-99); MONOCYTES % (AUTO) 7.5 % (3.0-13.0); NEUTROPHILS % (AUTO) 62.3 % (40.0-77.0); PLATELET COUNT (AUTO) 195 K/uL (130-400); RED BLOOD CELL COUNT(AUTO) 5.14 MIL/uL (4.50-6.20); RED CELL DISTRIBUTION WIDTH 13.3 % (11.0-15.5); WHITE BLOOD COUNT (AUTO) 9.6 K/uL (4.8-10.8)
[2022-08-26 18:00] LABS: CREATININE 1.4 mg/dL (0.5-1.5); POTASSIUM 4.3 mmol/L (3.5-5.1)
[2022-08-26 18:10] LABS: ALBUMIN 4.2 g/dL (3.5-5.0); TOTAL PROTEIN, SERUM 7.7 g/dL (6.0-8.3)
[2022-08-26 18:40] LABS: B-TYPE NATRIURETIC PEPTIDE 24 pg/mL (0-100)
[2022-08-26] MEDS ORDERED: METO10TA41 PO (19:32)
[2022-08-26 20:09] VITALS: BP 112/56
== END 2022-08-26 20:10 | disposition home or self-care (01) ==
LOC: EDH 16:57
DX: J92.9 Pleural plaque without asbestos (principal); E11.9 Type 2 diabetes mellitus without complications; E78.00 Pure hypercholesterolemia, unspecified; I10 Essential (primary) hypertension; Z79.899 Other long term (current) drug therapy
CPT/HCPCS: 36415; 71045; 80053; 82550; 83874; 83880; 84484; 85025; 93005

== ENCOUNTER 2023-06-23 11:58 | Emergency (ER) | payer OTHER, MEDICARE ==
[~2023-06-23] VITALS: Ht 172.7 cm; Wt 107.5 kg
[~2023-06-23 11:58] MED LIST changes: +METO10TA41 PO
[2023-06-23 13:15] LABS: BASOPHILS # (AUTO) 0.02 K/uL (0.00-0.20); BASOPHILS % (AUTO) 0.3 % (0.0-5.0); EOSINOPHILS # (AUTO) 0.13 K/uL (0.00-0.70); HEMATOCRIT 50.3 % (42-54); IMMATURE GRANULOCYTE ABSOLUTE 0.03 K/uL (0-1); LYMPHOCYTES # (AUTO) 2.1 K/uL (1.0-4.8); LYMPHOCYTES % (AUTO) 32.3 % (21.0-51.0); MEAN CORPUSCULAR HEMOGLOBIN 32.8 pg (27.0-33.0); MEAN CORPUSCULAR HGB CONC 33.6 g/dL (32.0-36.0); MEAN CORPUSCULAR VOLUME 97.7 fL (79-99); MONOCYTES # (AUTO) 0.5 K/uL (0.1-1.0); MONOCYTES % (AUTO) 8.3 % (3.0-13.0); NEUTROPHILS # (AUTO) 3.7 K/uL (1.8-7.7); NEUTROPHILS % (AUTO) 56.6 % (40.0-77.0); PLATELET COUNT (AUTO) 182 K/uL (130-400); RED BLOOD CELL COUNT(AUTO) 5.15 MIL/uL (4.50-6.20); RED CELL DISTRIBUTION WIDTH 12.7 % (11.0-15.5); WHITE BLOOD COUNT (AUTO) 6.5 K/uL (4.8-10.8)
[2023-06-23 13:26] LABS: CREATININE 1.3 mg/dL (0.5-1.3); POTASSIUM 4.7 mmol/L (3.5-5.1)
[2023-06-23 14:29] LABS: ADD UA MICROSCOPIC YES; APPEARANCE,URINE CLEAR (CLEAR); BILIRUBIN,URINE NEGATIVE (NEGATIVE); COLOR,URINE LIGHT-YELLOW (YELLOW); GLUCOSE, URINE (UA) >=1000 mg/dL (NEGATIVE); KETONES,URINE NEGATIVE (NEGATIVE); LEUKOCYTE ESTERASE ,URINE NEGATIVE Leu/uL (NEGATIVE); NITRATE,URINE NEGATIVE (NEGATIVE); OCCULT BLOOD,URINE NEGATIVE (NEGATIVE); PH,URINE 5.5 (5.0-8.0); PROTEIN,URINE 10 mg/dL (NEGATIVE); UROBILINOGEN,URINE 0.2 mg/dL (0.2-1.0)
[2023-06-23 14:34] LABS: MUCUS,URINE RARE LPF (None Seen); RBC,URINE 0-1 /HPF (0-1); SQUAMOUS EPITHELIAL CELL,UR RARE /HPF (0-2)
[2023-06-23] MEDS: MECLIZINE HCL 25 MG TABLET PO ONE (14:57)
[2023-06-23 15:46] LABS: MAGNESIUM 2.3 mg/dL (1.80-2.40); THYROID STIMULATING HORMONE 5.13 uIU/mL (0.36-3.74)
[2023-06-23] MEDS ORDERED: IOHEXOL-350 75 ML VIAL IV ONE (17:36)
[2023-06-23] MEDS: ASPIRIN 325MG EC TAB PO ONE (21:02)
[2023-06-23 21:03] VITALS: TEMP 101
[2023-06-23] MEDS: ACETAMINOPHEN 500 MG TABLET PO ONE (21:03)
[2023-06-23 23:49] VITALS: BP 134/74; PULSE 76; RESP 17; O2SAT 97
== END 2023-06-24 01:27 | disposition short-term general hospital (02) ==
LOC: EDH 11:58
DX: I63.9 Cerebral infarction, unspecified (principal); I12.9 Hypertensive chronic kidney disease with stage 1 through stage 4 chronic kidney disease, or unspecified chronic kidney disease; E11.22 Type 2 diabetes mellitus with diabetic chronic kidney disease; N18.9 Chronic kidney disease, unspecified; E78.00 Pure hypercholesterolemia, unspecified; Z79.899 Other long term (current) drug therapy; Z95.1 Presence of aortocoronary bypass graft
CPT/HCPCS: 99285; 70450; 70551; 71045; 84443; 83735; 80048; 85025; 87040 ×2; 83605; 81001; 36415; 70496; 70498; 93005; Q9967

== ENCOUNTER → 2023-12-07 | Outpatient (CLI) | payer MEDICARE | END | disposition home or self-care (01) | LOC: SHCH 13:28 | PROVIDERS: ATTEND Internal Medicine Cardiovascular Disease | DX: I08.0 Rheumatic disorders of both mitral and aortic valves (principal); R01.1 Cardiac murmur, unspecified; I25.10 Atherosclerotic heart disease of native coronary artery without angina pectoris; E78.5 Hyperlipidemia, unspecified | CPT/HCPCS: 93306; 93356 ==